=== PATIENT | male | born 1985 | race African-American/Black ===

== ENCOUNTER 2020-05-26 23:31 | Emergency (ER) | payer MEDICAID ==
[~2020-05-26] VITALS: Ht 172.7 cm; Wt 36.3 kg
[2020-05-26 23:45] VITALS: BP 143/86
[2020-05-26] MEDS ORDERED: Lidocaine 1% MPF 10mg/ml 5ml INJ ONE (23:45)
[2020-05-26] MEDS ORDERED: Azithromycin 250mg tab ORAL ONE (23:45)
--- NOTE | 2020-05-26 23:46 | NUR ---
ED Nurse Note: walked in to ed c/o discharge in penis onset 3 days ago. pt reports carolee Gonorrhea. pt also reports intermittent nonradiating left sided chest pain onset 1 month ago. vss, nad, aaox4, ambulatory, urine collected and sent to lab.
--- NOTE | 2020-05-26 23:55 | NUR ---
ED Nurse Note: ERMD at bedside
--- NOTE | 2020-05-27 00:04 | Emergency Room Report ---
History of Present Illness General Chief Complaint: Male Urogenital Problems Source: Patient Present Illness HPI 34-year-old male here with penile discharge and dysuria. The patient says that 4 days ago he had sex for the first time with a new male partner and did not use protection. He says that 2 days ago he began to have some mild discomfort with urination and then earlier today noticed some white penile discharge. No fevers, chills, skin lesions, testicular pain. Allergies: Coded Allergies: No Known Allergies (Unverified , 05/26/20) COVID-19 Screening Contact w/high risk pt: No Experienced COVID-19 symptoms?: No COVID-19 Testing performed [employer]ES: No Nursing Documentation-[facility] Past Medical History: No Stated History Review of Systems All Other Systems: negative except mentioned in HPI Physical Exam Vital Signs Date Time Temp Pulse Resp B/P (MAP) Pulse Ox O2 Delivery O2 Flow Rate FiO2 05/26/20 23:32 97.9 78 16 146/87 (106) 99 Room Air Sp02 EP Interpretation: reviewed, normal General Appearance: no apparent distress, alert, GCS 15, non-toxic Head: normocephalic, atraumatic Eyes: bilateral eye normal inspection, bilateral eye PERRL ENT: hearing grossly normal, normal pharynx, no angioedema, normal voice Neck: full range of motion, supple/symm/no masses Respiratory: chest non-tender, lungs clear, normal breath sounds, speaking full sentences Cardiovascular #1: regular rate, rhythm, no edema Cardiovascular #2: 2+ carotid (R), 2+ carotid (L), 2+ radial (R), 2+ radial (L), 2+ dorsalis pedis (R), 2+ dorsalis pedis (L) Gastrointestinal: normal bowel sounds, non tender, soft, non-distended, no guarding, no rebound Rectal: deferred Genitourinary: normal inspection, no CVA tenderness, other - No active penile d ischarge. No testicular pain. No skin lesions Musculoskeletal: back normal, normal range of motion, calf tenderness, gait/station normal, non-tender Neurologic: alert, motor strength/tone normal, oriented x3, sensory intact, responsive, speech normal Psychiatric: judgement/insight normal, memory normal, mood/affect normal, no suicidal/homicidal ideation Lymphatic: no adenopathy Medical Decision Making Diagnostic Impression: Primary Impression: Urethritis ER Course 34-year-old male here with dysuria and penile discharge. Patient was hemodynamically stable and had a largely normal physical examination in the emergency department. He had no testicular pain or skin lesions on examination. Empirically treated for gonorrhea and chlamydial infections with ceftriaxone and azithromycin. Told to come back to the emergency department if he has any worsening symptoms, abdominal pain, joint pain. Patient also said that he was having intermittent left-sided chest pain ongoing for several months that is reproducible on palpation. PERC score 0. EKG unremarkable. Patient will follow-up with his primary care provider. He expressed understanding and was discharged. EKG: NSR, no ischemia, intervals WNL. No ectopy Rhythm strip: patient monitored for arrhythmias - no malignant dysrhythmias, runs of PVCs, nor pauses noted Last Vital Signs Date Time Temp Pulse Resp B/P (MAP) Pulse Ox O2 Delivery O2 Flow Rate FiO2 05/26/20 23:45 98.2 77 18 143/86 99 Room Air Disposition: HOME, SELF-CARE Condition: Stable Referrals: [facility] Patient Instructions: Urethritis, Adult Additional Instructions: Please follow-up with your primary care doctor in the next 1 to 3 days to discuss this emergency department visit and for reevaluation. If you have any new or worsening symptoms please return to the emergency department for reevaluation. Jasmeet Leigh M.D. May 27, 2020 00:04
[2020-05-27 00:08] VITALS: BP 143/86
--- NOTE | 2020-05-27 00:08 | NUR ---
ER DISCHARGE NOTE: Patient is cleared to be discharged per ERMD, pt is aox4, on room air, with stable vital signs. pt was given dc and prescription instructions, pt was able to verbalize understanding, pt id band removed. pt is able to ambulate with steady gait. pt took all belongings.
--- NOTE | 2020-05-31 06:18 | Cardiology Report ---
APPROVED REPORT EKG Measurement Heart [id number] <Conclusion> Normal sinus rhythm Voltage criteria for left ventricular hypertrophy Early repolarization Abnormal ECG
== END 2020-05-27 00:09 | disposition home or self-care (01) ==
LOC: EMR 23:48
DX: N34.2 Other urethritis (principal)
CPT/HCPCS: 93005; 96372; 96374; J0696; Q0144; Z7502; 99284